=== PATIENT | male | born 1950 | race African-American/Black ===

== ENCOUNTER 2017-05-13 02:03 | Inpatient (IN) | payer MEDICAID, MEDICARE ==
[2017-05-13] VITALS (8 sets, daily range): BP systolic 126–148; BP diastolic 50–82
[~2017-05-13] VITALS: Ht 167.6 cm; Wt 98.4 kg
[~2017-05-13 02:03] MED LIST: ASPIRIN81 MG ORAL; LASIX20 M1 ORAL; NKM; NORCO 5-325 TA1 EACH ORAL; POTASSIUM CHLO10 ME3 ORAL
[2017-05-13] MEDS ORDERED: ASPIRIN EC81 MG ORAL (02:20)
[2017-05-13] MEDS ORDERED: GLYBURIDE5 MG PO (02:20)
[2017-05-13] MEDS ORDERED: METOPROLOL TAR100 MG ORAL (02:20)
[2017-05-13] MEDS ORDERED: BACLOFEN10 MG ORAL (02:20)
[2017-05-13] MEDS ORDERED: SIMVASTATIN20 MG ORAL (02:20)
[2017-05-13] MEDS ORDERED: HYDROCODON-ACE1 EA13 ORAL (02:20)
[2017-05-13] MEDS ORDERED: FENOFIBRATE43 MG ORAL (02:20)
[2017-05-13] MEDS ORDERED: GABAPENTIN400 MG ORAL (02:20)
[2017-05-13] MEDS ORDERED: QVAR7.3 G2 IH (02:20)
[2017-05-13] MEDS ORDERED: ATARAX25 MG ORAL (02:20)
[2017-05-13] MEDS ORDERED: LASIX20 M1 ORAL (02:20)
[2017-05-13] MEDS ORDERED: LOSARTAN POTASS50 MG ORAL (02:20)
[2017-05-13] MEDS ORDERED: Azithromycin 500 MG in NS 275 ML IV ONE (02:30)
[2017-05-13] MEDS ORDERED: Ipratropium 0.02% Inh Soln 2.5ml UD HHN ONE (02:30)
[2017-05-13] MEDS ORDERED: Morphine Sulfate 4mg/ml Inj IVP ONE (02:30)
[2017-05-13] MEDS ORDERED: Solu-MEDROL 125mg Inj IVP ONE (02:30)
[2017-05-13] MEDS: Albuterol ud Inhalation HHN SCH ×3 (02:45→03:06)
[2017-05-13] MEDS ORDERED: Azithromycin 500mg Inj IV ONE (02:52)
--- NOTE | 2017-05-13 02:57 | Emergency Room Report ---
History of Present Illness General Chief Complaint: Upper Respiratory Illness Source: Patient Present Illness [facility] The patient presents to emergency department with dyspnea cough and left ear pain. This program for several days. The worsening. His been using an inhaler at least daily. He is wheezing. The patient has a prior history of congestive heart failure. This is new for him to have a productive cough and as such significant wheezing. The symptoms worse attack. The left taking prednisone in the past. The patient complains about chest pain but only when he is coughing. It's not worsened when he is walking. Denies any calf tenderness although he does have some edema of his lower extremities. Some loose stools. Min nausea. No vomiting. 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 Reviewed Nursing Documentation: PMH: Agreed, PSxH: Agreed Nursing Documentation-PMH Hx Cardiac Problems: Yes - Hx of ME 2 years ago Hx Hypertension: Yes Hx Asthma: Yes Review of Systems All Other Systems: negative except mentioned in HPI Physical Exam Vital Signs Date Time Temp Pulse Resp B/P (MAP) Pulse Ox O2 Delivery O2 Flow Rate FiO2 05/13/17 02:09 100.9 82 22 161/90 94 Room Air 05/13/17 02:40 97 Sp02 EP Interpretation: reviewed, normal General Appearance: well appearing, no apparent distress, GCS 15 Head: normocephalic Eyes: bilateral eye PERRL, bilateral eye Scleral Injection ENT: moist mucus membranes Neck: supple Respiratory: rales, wheezing, expiration - significant Cardiovascular #1: regular rate, rhythm, other - I cannot see JVD, edema - trace bilat Cardiovascular #2: 2+ radial (R) Gastrointestinal: normal inspection, normal bowel sounds, non tender, no mass, non-distended, overweight Musculoskeletal: back normal, gait/station normal, normal range of motion Neurologic: alert, oriented x3, grossly normal Psychiatric: mood/affect normal Skin: normal inspection, warm/dry Medical Decision Making Diagnostic Impression: Primary Impression: COPD exacerbation Additional Impressions: Cocaine abuse Renal insufficiency Elevated CPK ER Course Patient presents with dyspnea cough and ear pain. Differential includes viral syndrome, COPD exacerbation, congestive heart failure, bacterial otitis media and upper respiratory infection, possible pneumonia amongst others. With the chest pain we need to exclude myocardial infarction. Evaluation will be with EKG, chest x-ray and labs. The patient will be treated with breathing treatments, some Medrol, morphine and azithromycin. Labs significant for normal WBC, lytes including troponin. EKG without injury. CXR no infiltrates. Tox + for cocaine and opiates. BNP minimally elevated. Influenza negative. Creat elevated. CK also elevated. Patient improved but still needs observation and treatment. When confronted about the cocaine, he denies (but then state he thinks he figured it out). Patient admitted to Dr. Nguyễn telemetry. Laboratory Tests Test 05/13/17 02:43 05/13/17 02:50 White Blood Count 5.6 K/UL (4.8-10.8) Red Blood Count 5.26 M/UL (4.70-6.10) Hemoglobin 15.1 G/DL (14.2-18.0) Hematocrit 47.1 % (42.0-52.0) Mean Corpuscular Volume 89 FL (80-99) Mean Corpuscular Hemoglobin 28.6 PG (27.0-31.0) Mean Corpuscular Hemoglobin Concent 32.0 G/DL (32.0-36.0) Red Cell Distribution Width 12.8 % (11.6-14.8) Platelet Count 150 K/UL (150-450) Mean Platelet Volume 10.5 FL (6.5-10.1) H Neutrophils (%) (Auto) 77.6 % (45.0-75.0) H Lymphocytes (%) (Auto) 11.9 % (20.0-45.0) L Monocytes (%) (Auto) 7.0 % (1.0-10.0) Eosinophils (%) (Auto) 1.9 % (0.0-3.0) Basophils (%) (Auto) 1.6 % (0.0-2.0) Prothrombin Time 10.7 SEC (9.30-11.50) Prothrombin Time INR 1.0 (0.9-1.1) PTT 34 SEC (23-33) H Sodium Level 139 MMOL/L (136-145) Potassium Level 3.5 MMOL/L (3.5-5.1) Chloride Level 100 MMOL/L (98-107) Carbon Dioxide Level 27 MMOL/L (21-32) Anion Gap 12 mmol/L (5-15) Blood Urea Nitrogen 14 mg/dL (7-18) Creatinine 1.6 MG/DL (0.55-1.30) H Estimate Glomerular Filtration Rate 52.8 mL/min (>60) Glucose Level 83 MG/DL (74-106) Lactic Acid Level 1.80 mmol/L (0.66-2.22) Calcium Level 9.0 MG/DL (8.5-10.1) Total Bilirubin 0.4 MG/DL (0.2-1.0) Aspartate Amino Transferase (AST) 28 U/L (15-37) Alanine Aminotransferase (ALT) 22 U/L (12-78) Alkaline Phosphatase 58 U/L (46-116) Total Creatine Kinase 506 U/L (26-308) H Troponin I 0.007 ng/mL (0.000-0.056) Pro-B-Type Natriuretic Peptide 334 pg/mL (0-125) H Total Protein 8.4 G/DL (6.4-8.2) H Albumin 3.9 G/DL (3.4-5.0) Globulin 4.5 g/dL Albumin/Globulin Ratio 0.9 (1.0-2.7) L Serum Alcohol < 3 mg/dL Urine Color Yellow Urine Appearance Clear Urine pH 6.5 (4.5-8.0) Urine Specific [place] 1.015 (1.005-1.035) Urine Protein 3+ (NEGATIVE) H Urine Glucose (UA) Negative (NEGATIVE) Urine Ketones Negative (NEGATIVE) Urine Occult Blood 2+ (NEGATIVE) H Urine Nitrite Negative (NEGATIVE) Urine Bilirubin Negative (NEGATIVE) Urine Urobilinogen 4 MG/DL (0.0-1.0) H Urine Leukocyte Esterase Negative (NEGATIVE) Urine RBC 2-4 /HPF (0 - 0) H Urine WBC 0 /HPF (0 - 0) Urine Squamous Epithelial Cells None /LPF (NONE/OCC) Urine Bacteria Few /HPF (NONE) Urine Opiates Screen Positive (NEGATIVE) H Urine Barbiturates Screen Negative (NEGATIVE) Phencyclidine (PCP) Screen Negative (NEGATIVE) Urine Amphetamines Screen Negative (NEGATIVE) Urine Benzodiazepines Screen Negative (NEGATIVE) Urine Cocaine Screen Positive (NEGATIVE) H Urine Marijuana (THC) Screen Negative (NEGATIVE) Microbiology Date/Time Source Procedure Growth Status 05/13/17 05:00 Nasal Nares Influenza Types A,B Antigen (JO) - Final Complete EKG Diagnostic Results Rate: normal Rhythm: NSR ST Segments: no acute changes Rhythm Strip Diag. Results EP Interpretation: yes Rhythm: NSR, no PVC's, no ectopy Last Vital Signs Date Time Temp Pulse Resp B/P (MAP) Pulse Ox O2 Delivery O2 Flow Rate FiO2 05/13/17 15:51 97.7 88 18 130/69 97 05/13/17 10:48 Room Air 21 Status: improved Disposition: ADMITTED INPATIENT Condition: Serious Indio Quintero M.D. May 13, 2017 02:57
[2017-05-13 03:13] LABS: APPEARANCE,URINE CLEAR; KETONES,URINE NEGATIVE (NEGATIVE); LEUKOCYTE ESTERASE ,URINE NEGATIVE (NEGATIVE); NITRITE,URINE NEGATIVE (NEGATIVE); PH,URINE 6.5 (4.5-8.0); PROTEIN,URINE 3+ (NEGATIVE); UROBILINOGEN,URINE 4 MG/DL (0.0-1.0)
[2017-05-13 03:15] LABS: BASOPHILS % (AUTO) 1.6 % (0.0-2.0); EOSINOPHILS % (AUTO) 1.9 % (0.0-3.0); LYMPHOCYTES % (AUTO) 11.9 % (20.0-45.0); MEAN CORPUSCULAR HEMOGLOBIN 28.6 PG (27.0-31.0); MEAN CORPUSCULAR VOLUME 89 FL (80-99); MEAN PLATELET VOLUME 10.5 FL (6.5-10.1); NEUTROPHILS % (AUTO) 77.6 % (45.0-75.0); PLATELET COUNT 150 K/UL (150-450); RED BLOOD COUNT 5.26 M/UL (4.70-6.10); RED CELL DISTRIBUTION WIDTH 12.8 % (11.6-14.8); WHITE BLOOD COUNT 5.6 K/UL (4.8-10.8)
[2017-05-13 03:18] LABS: ANION GAP 12 mmol/L (5-15); CARBON DIOXIDE 27 MMOL/L (21-32); CHLORIDE 100 MMOL/L (98-107); CREATININE 1.6 MG/DL (0.55-1.30); GLOMERULAR FILTRATION RATE 52.8 mL/min (>60); POTASSIUM 3.5 MMOL/L (3.5-5.1); SODIUM 139 MMOL/L (136-145)
[2017-05-13 03:26] LABS: WBC,URINE 0 /HPF (0 - 0)
[2017-05-13 03:27] LABS: BACTERIA,URINE FEW /HPF
[2017-05-13 03:29] LABS: ALANINE AMINOTRANSFERASE 22 U/L (12-78); ALBUMIN/GLOBULIN RATIO 0.9 (1.0-2.7); ASPARTATE AMINO TRANSFERASE 28 U/L (15-37); TOTAL PROTEIN 8.4 G/DL (6.4-8.2)
[2017-05-13 03:30] LABS: PROTHROMBIN TIME 10.7 SEC (9.30-11.50)
[2017-05-13] MEDS ORDERED: Promethazine/Codeine 5ml UD ORAL PRN (06:45)
[2017-05-13] MEDS ORDERED: LORazepam Inj 2mg/ml 1ml IV PRN (06:45)
[2017-05-13] MEDS ORDERED: Norco 10mg/325mg tab ORAL PRN (06:45)
[2017-05-13] MEDS ORDERED: Albuterol/Ipratropium 3ml neb HHN PRN (06:45)
[2017-05-13] MEDS ORDERED: Nitroglycerin Subl 0.4mg tab SL PRN (06:45)
[2017-05-13] MEDS ORDERED: Morphine Sulfate 2mg/ml Inj IVP PRN (06:45)
[2017-05-13] MEDS ORDERED: Losartan 50mg tab ORAL SCH (09:00)
[2017-05-13] MEDS: Solu-MEDROL 125mg Inj IV SCH ×3 (09:26→21:54)
[2017-05-13] MEDS: Theophylline ER 100mg ORAL SCH ×2 (09:26→21:54)
[2017-05-13] MEDS: Heparin 5000 units/ml inj SUBQ SCH ×2 (09:30→21:54)
[2017-05-13] MEDS ORDERED: DILTIAZEM HCL30 MG PO (10:41)
[2017-05-13] MEDS ORDERED: LACRI-LUBE1 APPLIC (10:41)
--- NOTE | 2017-05-13 11:06 | Diagnostic Imaging Report ---
Indication: COUGH Technique: One view of the chest Comparison: none Findings: The lungs and pleural spaces are clear. The aorta is calcified. Upper mediastinum is unremarkable. Heart size is upper limits of normal Impression: No acute process This agrees with the preliminary interpretation provided by the emergency room physician
[2017-05-13] MEDS: NovoLOG Insulin Flexpen SUBQ SCH ×3 (11:43→21:53)
[2017-05-13] MEDS: Zoysn 3.37gm in D5W 55ml IVPB SCH ×2 (13:30→21:54)
[2017-05-13] MEDS ORDERED: Piperacillin/Tazobactam 2.25 GM in D5W 55 ML IV SCH (14:00)
--- NOTE | 2017-05-13 14:17 | Cardiology Report ---
APPROVED REPORT EKG Measurement Heart [id number] FL [id number] Normal sinus rhythm Normal ECG
--- NOTE | 2017-05-13 14:34 | History and Physical ---
History of Present Illness General Date patient seen: May 13, 2017 Reason for Hospitalization: Upper Respiratory Illness Present Illness HPI 66 year old male with hx of Asthma, CHF presented to emergency department with dyspnea, productive cough and left ear pain for several days. He had wheezing on presentation. The patient complains about chest pain but only when he is coughing. He was diagnosed to have acute exacerbation of Asthma with purulent bronchitis and admitted for further work up. Allergies: Coded Allergies: IBUPROFEN (Verified Allergy, 12/07/12) Medication History Scheduled Aspirin Ec* (Aspirin Ec*), 81 MG ORAL DAILY, (Reported) Aspirin* (Aspirin*), 81 MG ORAL DAILY, (Reported) Baclofen* (Baclofen*), 10 MG ORAL BID, (Reported) Diltiazem Hcl (Diltiazem Hcl), 30 MG PO BID, (Reported) Fenofibrate,Micronized (Fenofibrate), 54 MG ORAL DAILY, (Reported) Furosemide* (Lasix*), 20 MG ORAL DAILY Furosemide* (Lasix*), 20 MG ORAL DAILY, (Reported) Gabapentin* (Gabapentin*), 400 MG ORAL THREE TIMES A DAY, (Reported) Glyburide (Glyburide), 5 MG PO BID, (Reported) Hydrocodone Bit/Acetaminophen 5-325* ([place] 5-325*), 1 TAB ORAL Q6H Losartan Potassium* (Losartan Potassium*), 100 MG ORAL DAILY, (Reported) Metoprolol Tartrate* (Metoprolol Tartrate*), 100 MG ORAL EVERY 12 HOURS, ( Reported) No Known Medications* (NKM - No Known Medications*), 0 ., (Reported) Potassium Chloride (Potassium Chloride), 10 MEQ ORAL DAILY Simvastatin (Zocor), 20 MG ORAL BEDTIME, (Reported) Scheduled PRN Hydrocodone Bit/Acetaminophen 10-325* (Hydrocodon-Acetaminophn 10-325*), 1 TAB ORAL Q8H PRN for For Pain, (Reported) Hydrocodone Bit/Acetaminophen 5-325* ([place] 5-325*), 1 TAB ORAL Q6H PRN for For Pain Hydroxyzine HCl (Hydroxyzine HCl), 25 MG ORAL DAILY PRN for For Anxiety, ( Reported) Miscellaneous Medications Artificial Tears (Refresh Lacri-Lube Ointment), (Reported) Beclomethasone Dipropionate (Qvar), Unknown Dose IH, (Reported) Patient History Healthcare decision maker Resuscitation status Advanced Directive on File Past Medical/Surgical History Past Medical/Surgical History: (1) History of asthma (2) CHF (congestive heart failure) Review of Systems Constitutional: Reports: weakness Eye: Reports: no symptoms ENT: Reports: no symptoms Respiratory: Reports: shortness of breath, wheezing Physical Exam General Appearance: no apparent distress Lines, tubes and drains: peripheral HEENT: normocephalic, atraumatic Neck: normal alignment, supple Respiratory/Chest: rhonchi - left, rhonchi - right, expiratory wheezing Breasts: no masses Cardiovascular/Chest: normal peripheral pulses, regular rhythm Last 24 Hour Vital Signs Date Time Temp Pulse Resp B/P (MAP) Pulse Ox O2 Delivery O2 Flow Rate FiO2 05/13/17 12:00 88 05/13/17 11:49 98.2 87 18 148/78 95 05/13/17 10:48 89 20 Room Air 21 05/13/17 09:26 135/71 05/13/17 08:35 98.2 88 18 135/71 95 05/13/17 08:00 87 05/13/17 05:49 97.9 86 20 143/82 96 Room Air 21 05/13/17 05:49 86 05/13/17 05:30 99.9 85 20 132/66 95 Room Air 21 05/13/17 05:13 99.9 85 20 132/66 95 Room Air 05/13/17 03:22 100.9 83 24 126/72 96 Room Air 21 05/13/17 03:18 73 24 100 Room Air 21 05/13/17 03:05 80 21 98 Room Air 21 05/13/17 03:05 36 05/13/17 03:05 77 22 100 Room Air 21 05/13/17 02:54 81 18 100 Room Air 21 05/13/17 02:54 36 05/13/17 02:53 79 16 100 Room Air 21 05/13/17 02:40 78 23 98 Room Air 21 05/13/17 02:40 36 05/13/17 02:40 87 18 Room Air 97 05/13/17 02:30 82 22 Room Air 05/13/17 02:09 100.9 82 22 161/90 94 Room Air Intake and Output 05/13/17 05/14/17 19:00 07:00 Intake Total 120 ml Balance 120 ml Intake Oral 120 ml # Voids 1 Laboratory Tests Test 05/13/17 02:43 05/13/17 02:50 White Blood Count 5.6 K/UL (4.8-10.8) Red Blood Count 5.26 M/UL (4.70-6.10) Hemoglobin 15.1 G/DL (14.2-18.0) Hematocrit 47.1 % (42.0-52.0) Mean Corpuscular Volume 89 FL (80-99) Mean Corpuscular Hemoglobin 28.6 PG (27.0-31.0) Mean Corpuscular Hemoglobin Concent 32.0 G/DL (32.0-36.0) Red Cell Distribution Width 12.8 % (11.6-14.8) Platelet Count 150 K/UL (150-450) Mean Platelet Volume 10.5 FL (6.5-10.1) H Neutrophils (%) (Auto) 77.6 % (45.0-75.0) H Lymphocytes (%) (Auto) 11.9 % (20.0-45.0) L Monocytes (%) (Auto) 7.0 % (1.0-10.0) Eosinophils (%) (Auto) 1.9 % (0.0-3.0) Basophils (%) (Auto) 1.6 % (0.0-2.0) Prothrombin Time 10.7 SEC (9.30-11.50) Prothromb Time International Ratio 1.0 (0.9-1.1) Activated Partial Thromboplast Time 34 SEC (23-33) H Sodium Level 139 MMOL/L (136-145) Potassium Level 3.5 MMOL/L (3.5-5.1) Chloride Level 100 MMOL/L (98-107) Carbon Dioxide Level 27 MMOL/L (21-32) Anion Gap 12 mmol/L (5-15) Blood Urea Nitrogen 14 mg/dL (7-18) Creatinine 1.6 MG/DL (0.55-1.30) H Estimat Glomerular Filtration Rate 52.8 mL/min (>60) Glucose Level 83 MG/DL (74-106) Lactic Acid Level 1.80 mmol/L (0.66-2.22) Calcium Level 9.0 MG/DL (8.5-10.1) Total Bilirubin 0.4 MG/DL (0.2-1.0) Aspartate Amino Transf (AST/SGOT) 28 U/L (15-37) Alanine Aminotransferase (ALT/SGPT) 22 U/L (12-78) Alkaline Phosphatase 58 U/L (46-116) Total Creatine Kinase 506 U/L (26-308) H Troponin I 0.007 ng/mL (0.000-0.056) Pro-B-Type Natriuretic Peptide 334 pg/mL (0-125) H Total Protein 8.4 G/DL (6.4-8.2) H Albumin 3.9 G/DL (3.4-5.0) Globulin 4.5 g/dL Albumin/Globulin Ratio 0.9 (1.0-2.7) L Serum Alcohol < 3 mg/dL Urine Color Yellow Urine Appearance Clear Urine pH 6.5 (4.5-8.0) Urine Specific [place] 1.015 (1.005-1.035) Urine Protein 3+ (NEGATIVE) H Urine Glucose (UA) Negative (NEGATIVE) Urine Ketones Negative (NEGATIVE) Urine Occult Blood 2+ (NEGATIVE) H Urine Nitrite Negative (NEGATIVE) Urine Bilirubin Negative (NEGATIVE) Urine Urobilinogen 4 MG/DL (0.0-1.0) H Urine Leukocyte Esterase Negative (NEGATIVE) Urine RBC 2-4 /HPF (0 - 0) H Urine WBC 0 /HPF (0 - 0) Urine Squamous Epithelial Cells None /LPF (NONE/OCC) Urine Bacteria Few /HPF (NONE) Urine Opiates Screen Positive (NEGATIVE) H Urine Barbiturates Screen Negative (NEGATIVE) Phencyclidine (PCP) Screen Negative (NEGATIVE) Urine Amphetamines Screen Negative (NEGATIVE) Urine Benzodiazepines Screen Negative (NEGATIVE) Urine Cocaine Screen Positive (NEGATIVE) H Urine Marijuana (THC) Screen Negative (NEGATIVE) Microbiology Date/Time Source Procedure Growth Status 05/13/17 05:00 Nasal Nares Influenza Types A,B Antigen (JO) - Final Complete Height (Feet): 5 Height (Inches): 6.00 Weight (Pounds): 217 Medications Current Medications Medications (Trade) Dose Ordered Sig/Jinny Route PRN Reason Start Time Stop Time Status Last Admin Dose Admin Acetaminophen/ Hydrocodone Bitart ([place] 10325) 1 ea Q8H PRN ORAL For Pain 05/13/17 06:45 05/20/17 06:44 Albuterol/ Ipratropium (Albuterol/ Ipratropium) 3 ml Q4H PRN HHN dyspnea 05/13/17 06:45 05/18/17 06:44 Baclofen (Lioresal) 10 mg BID ORAL 05/13/17 09:00 06/12/17 08:59 05/13/17 09:26 Dextrose (Dextrose 50%) STAT PRN IV Hypoglycemia 05/13/17 06:45 06/12/17 06:44 Gabapentin (Neurontin) 400 mg THREE TIMES A DAY ORAL 05/13/17 09:00 06/12/17 08:59 05/13/17 13:30 Heparin Sodium (Porcine) (Heparin 5000 units/ml) 5,000 units EVERY 12 HOURS SUBQ 05/13/17 09:00 06/12/17 08:59 05/13/17 09:30 Insulin Aspart (NovoLOG) BEFORE MEALS AND HS SUBQ 05/13/17 11:30 06/12/17 11:29 05/13/17 11:43 Lorazepam (Ativan 2mg/ml 1ml) 0.5 mg Q4H PRN IV For Anxiety 05/13/17 06:45 05/20/17 06:44 Losartan Potassium (Cozaar) 100 mg DAILY ORAL 05/13/17 09:00 06/12/17 08:59 05/13/17 09:26 Methylprednisolone Sodium Succinate (Solu-MEDROL) 60 mg Q6H IV 05/13/17 09:00 06/12/17 08:59 05/13/17 09:26 Morphine Sulfate (Morphine Sulfate) 2 mg Q4H PRN IVP severe pain 7-10 05/13/17 06:45 05/20/17 06:44 Nitroglycerin (Ntg) 0.4 mg Q5M X 3 DOSES PRN SL Prn Chest Pain 05/13/17 06:45 06/12/17 06:44 Ondansetron HCl (Zofran) 4 mg Q6H PRN IVP Nausea & Vomiting 05/13/17 06:45 06/12/17 06:44 Piperacillin Sod/ Tazobactam Sod 3.375 gm/Dextrose 55 ml @ 13.75 mls/ hr EVERY 8 HOURS IVPB 05/13/17 14:00 05/18/17 13:59 05/13/17 13:30 Promethazine HCl/ Codeine (Phenergan with Codeine) 5 ml Q6H PRN ORAL cough 05/13/17 06:45 06/12/17 06:44 Temazepam (Restoril) 15 mg HSPRN PRN ORAL Insomnia 05/13/17 06:45 05/20/17 06:44 Theophylline (Lonnie-Dur) 100 mg EVERY 12 HOURS ORAL 05/13/17 09:00 06/12/17 08:59 05/13/17 09:26 Assessment/Plan Problem List: (1) COPD exacerbation ICD Codes: J44.1 - Chronic obstructive pulmonary disease with (acute) exacerbation SNOMED: 839108921569446 (2) CHF (congestive heart failure) ICD Codes: I50.9 - Heart failure, unspecified SNOMED: 28269537 (3) History of asthma ICD Codes: Z87.09 - Personal history of other diseases of the respiratory system SNOMED: 423822833 Assessment/Plan respiratory treatment IV abx/ steroids check sputum antitussives echo SHADI VILLAGRAN May 13, 2017 14:34
--- NOTE | 2017-05-13 15:21 | Cardiology Progress Note ---
Assessment/Plan Assessment/Plan [id number] Objective Last 24 Hour Vital Signs Date Time Temp Pulse Resp B/P (MAP) Pulse Ox O2 Delivery O2 Flow Rate FiO2 05/13/17 12:00 88 05/13/17 11:49 98.2 87 18 148/78 95 05/13/17 10:48 89 20 Room Air 21 05/13/17 09:26 135/71 05/13/17 08:35 98.2 88 18 135/71 95 05/13/17 08:00 87 05/13/17 05:49 97.9 86 20 143/82 96 Room Air 21 05/13/17 05:49 86 05/13/17 05:30 99.9 85 20 132/66 95 Room Air 21 05/13/17 05:13 99.9 85 20 132/66 95 Room Air 05/13/17 03:22 100.9 83 24 126/72 96 Room Air 21 05/13/17 03:18 73 24 100 Room Air 21 05/13/17 03:05 80 21 98 Room Air 21 05/13/17 03:05 36 05/13/17 03:05 77 22 100 Room Air 21 05/13/17 02:54 81 18 100 Room Air 21 05/13/17 02:54 36 05/13/17 02:53 79 16 100 Room Air 21 05/13/17 02:40 78 23 98 Room Air 21 05/13/17 02:40 36 05/13/17 02:40 87 18 Room Air 97 05/13/17 02:30 82 22 Room Air 05/13/17 02:09 100.9 82 22 161/90 94 Room Air Intake and Output 05/13/17 05/14/17 19:00 07:00 Intake Total 133.75 ml Balance 133.75 ml Intake Oral 120 ml IV Total 13.75 ml # Voids 1 Laboratory Tests Test 05/13/17 02:43 05/13/17 02:50 White Blood Count 5.6 K/UL (4.8-10.8) Red Blood Count 5.26 M/UL (4.70-6.10) Hemoglobin 15.1 G/DL (14.2-18.0) Hematocrit 47.1 % (42.0-52.0) Mean Corpuscular Volume 89 FL (80-99) Mean Corpuscular Hemoglobin 28.6 PG (27.0-31.0) Mean Corpuscular Hemoglobin Concent 32.0 G/DL (32.0-36.0) Red Cell Distribution Width 12.8 % (11.6-14.8) Platelet Count 150 K/UL (150-450) Mean Platelet Volume 10.5 FL (6.5-10.1) H Neutrophils (%) (Auto) 77.6 % (45.0-75.0) H Lymphocytes (%) (Auto) 11.9 % (20.0-45.0) L Monocytes (%) (Auto) 7.0 % (1.0-10.0) Eosinophils (%) (Auto) 1.9 % (0.0-3.0) Basophils (%) (Auto) 1.6 % (0.0-2.0) Prothrombin Time 10.7 SEC (9.30-11.50) Prothromb Time International Ratio 1.0 (0.9-1.1) Activated Partial Thromboplast Time 34 SEC (23-33) H Sodium Level 139 MMOL/L (136-145) Potassium Level 3.5 MMOL/L (3.5-5.1) Chloride Level 100 MMOL/L (98-107) Carbon Dioxide Level 27 MMOL/L (21-32) Anion Gap 12 mmol/L (5-15) Blood Urea Nitrogen 14 mg/dL (7-18) Creatinine 1.6 MG/DL (0.55-1.30) H Estimat Glomerular Filtration Rate 52.8 mL/min (>60) Glucose Level 83 MG/DL (74-106) Lactic Acid Level 1.80 mmol/L (0.66-2.22) Calcium Level 9.0 MG/DL (8.5-10.1) Total Bilirubin 0.4 MG/DL (0.2-1.0) Aspartate Amino Transf (AST/SGOT) 28 U/L (15-37) Alanine Aminotransferase (ALT/SGPT) 22 U/L (12-78) Alkaline Phosphatase 58 U/L (46-116) Total Creatine Kinase 506 U/L (26-308) H Troponin I 0.007 ng/mL (0.000-0.056) Pro-B-Type Natriuretic Peptide 334 pg/mL (0-125) H Total Protein 8.4 G/DL (6.4-8.2) H Albumin 3.9 G/DL (3.4-5.0) Globulin 4.5 g/dL Albumin/Globulin Ratio 0.9 (1.0-2.7) L Serum Alcohol < 3 mg/dL Urine Color Yellow Urine Appearance Clear Urine pH 6.5 (4.5-8.0) Urine Specific [place] 1.015 (1.005-1.035) Urine Protein 3+ (NEGATIVE) H Urine Glucose (UA) Negative (NEGATIVE) Urine Ketones Negative (NEGATIVE) Urine Occult Blood 2+ (NEGATIVE) H Urine Nitrite Negative (NEGATIVE) Urine Bilirubin Negative (NEGATIVE) Urine Urobilinogen 4 MG/DL (0.0-1.0) H Urine Leukocyte Esterase Negative (NEGATIVE) Urine RBC 2-4 /HPF (0 - 0) H Urine WBC 0 /HPF (0 - 0) Urine Squamous Epithelial Cells None /LPF (NONE/OCC) Urine Bacteria Few /HPF (NONE) Urine Opiates Screen Positive (NEGATIVE) H Urine Barbiturates Screen Negative (NEGATIVE) Phencyclidine (PCP) Screen Negative (NEGATIVE) Urine Amphetamines Screen Negative (NEGATIVE) Urine Benzodiazepines Screen Negative (NEGATIVE) Urine Cocaine Screen Positive (NEGATIVE) H Urine Marijuana (THC) Screen Negative (NEGATIVE) Microbiology Date/Time Source Procedure Growth Status 05/13/17 05:00 Nasal Nares Influenza Types A,B Antigen (JO) - Final Complete ALLYSON GHOSH May 13, 2017 15:21
[2017-05-13 16:29] LABS: ABG BASE EXCESS -1.9; ABG PCO2 33.8 mmHg (35.0-45.0)
[2017-05-13 16:30] LABS: ABG ALLEN TEST POSITIVE
--- NOTE | 2017-05-13 18:30 | Consultation ---
DATE OF CONSULTATION: 05/13/2017 CARDIOLOGY CONSULTATION REFERRING PHYSICIAN: Marcella Nguyễn M.D. REASON FOR REFERRAL: Shortness of breath. HISTORY OF PRESENT ILLNESS: This is a 66-year-old gentleman, who has multiple medical problems as delineated below. The patient presented to the hospital and has been admitted early this morning because of shortness of breath. He is very drowsy at the present time. He is really unable to provide any meaningful history. He has had some coughing. Nonetheless he is not able to provide any meaningful history. At the present time, he is somewhat drowsy. Apparently, he presented to the emergency room because of coughing and left ear pain that has been going on for several days and gradually getting worse. He has been using his inhalers on a regular basis, but still wheezing. Apparently, he has a history of prior congestive heart failure, although again that information is obtained from the patient's chart as I am not able to get that information from him. He denies any chest pain. Denies any PND. Denies any orthopnea. Denies any palpitations. Denies any dizziness. On questioning, however, again accuracy of this is completely clear to me. He does indicate he does have dyspnea on exertion. PAST MEDICAL HISTORY: He does have diabetes. He states he has high blood pressure. No history of heart attack. No cancer or stroke. ALLERGIES: He is not allergic to any medications he states, although his chart indicates he is allergic to ibuprofen. SOCIAL HISTORY: Denies any smoking, drinking of alcoholic beverages, and/or drug use. REVIEW OF SYSTEMS: Denies nausea or vomiting. Does have diarrhea and constipation. Denies any burning or blood in the urine. Denies any coughing or wheezing to me. PHYSICAL EXAMINATION: GENERAL: Reveals drowsy elderly gentleman, in no respiratory distress. HEENT: Unremarkable. NECK: Supple. No jugular venous distention. LUNGS: Appear to be clear to auscultation. CARDIAC: Regular rhythm. ABDOMEN: Soft and obese. Positive bowel sounds. EXTREMITIES: There is no clubbing, cyanosis, nor is there any edema. LABORATORY AND DIAGNOSTIC DATA: His white count of 5.6, hemoglobin 15.1, and platelet count of 150. Sodium is 139, potassium 3.5, chloride 100, bicarbonate 27, BUN 14, creatinine 1.6, and glucose of 83. Lactic acid of 1.8. Troponin was 0.02. ProBNP is only 333. CK of 506. Urinalysis is fairly unremarkable. Coags, INR 1.0. PTT of 34. His chest x-ray today showed no acute process. EKG is sinus rhythm, really no significant ST-T wave abnormalities. ASSESSMENT AND PLAN: 1. Dyspnea. 2. Drowsiness. 3. Obesity. 4. Chronic obstructive pulmonary disease. 5. Reported history of congestive heart failure. Dr. Nguyễn, this patient was seen in cardiac consultation. Examination is not suggestive of congestive heart failure. He is quite drowsy having not received any significant medication to make him that way. CO2 narcosis is the concern. I have instructed the nurses to perform a blood gas to evaluate for possibility of CO2 narcosis. Further recommendations depending on that. He will have a set of cardiac enzymes repeated as well as an EKG in the morning as well as an echocardiogram. Augustus Larios M.D. DR: Navid JOB#: [id number] CC:
--- NOTE | 2017-05-13 18:32 | General Progress Note ---
Progress Note Progress Note ENT Initial consult dictated job # [id number] Is pharyngitis not left ear otitis continue present antibiotics which seem to be working per the pt. MARY QUILES May 13, 2017 18:32
--- NOTE | 2017-05-13 20:45 | Consultation ---
DATE OF CONSULTATION: 05/13/2017 HEAD AND NECK SURGERY, ENT CONSULT CONSULTING PHYSICIAN: Octaviano Anton M.D. REFERRING PHYSICIAN: Marcella Nguyễn M.D. INDICATION FOR CONSULTATION: The patient complains of pain in his left ear that is going on for about 2 weeks. He has not treated it with anything. PAST MEDICAL HISTORY: Significant for cocaine abuse, renal insufficiency, elevated CPK, knee sprain, and asthma. MEDICATIONS: Include piperacillin, insulin, Neurontin, Cozaar, Lonnie-Dur, albuterol, lorazepam, morphine, nitroglycerin, Zofran, Restoril, Zithromax, Proventil, Atrovent, and morphine sulfate. ALLERGIC REACTIONS: Ibuprofen. PHYSICAL EXAMINATION: GENERAL: This is a 66-year-old male, who is 167.64 cm, 98.43 kg, and BMI 35.0 kg/m2. The patient is sitting up in bed, conversive. HEENT: Head is normocephalic. Right ear, positive light reflex. Normal canal. Small amount of wax but no significant signs of infection. Neck is tender under the left jaw. When he swallows, it hurts in the mouth. Little red on the left side. Nose, normal mucosa. ASSESSMENT: This appears to be pharyngitis and he seems to be responding to the intravenous antibiotics. He does have a history of cocaine abuse and renal insufficiency. PLAN: Continue the IV antibiotics and this should go away. Please reconsult me for any further questions or concerns. Please note that I will be out of town from the evening of 05/15/2017 through 05/20/2017. Octaviano Anton M.D. DR: FATOU JOB#: [id number] CC:
[2017-05-14] MEDS ORDERED: Nitroglycerin Subl 0.4mg tab SL PRN (00:30)
[2017-05-14] MEDS ORDERED: Promethazine/Codeine 5ml UD ORAL PRN (00:45)
[2017-05-14] MEDS ORDERED: Albuterol/Ipratropium 3ml neb HHN PRN (02:45)
[2017-05-14] MEDS ORDERED: LORazepam Inj 2mg/ml 1ml IV PRN (02:45)
[2017-05-14] MEDS ORDERED: Morphine Sulfate 2mg/ml Inj IVP PRN (02:45)
[2017-05-14 04:00] VITALS: BP 136/94
[2017-05-14] MEDS: Solu-MEDROL 125mg Inj IV SCH ×3 (05:23→15:50)
[2017-05-14] MEDS: Piperacillin/Tazobactam 3.375 GM in D5W 55 ML IVPB SCH ×2 (06:00→14:22)
[2017-05-14] MEDS: NovoLOG Insulin Flexpen SUBQ SCH ×3 (06:30→17:36)
[2017-05-14] MEDS ORDERED: Norco 10mg/325mg tab ORAL PRN (06:45)
[2017-05-14 08:00] VITALS: BP 142/79
[2017-05-14] MEDS ORDERED: Theophylline ER 100mg ORAL SCH (09:00)
[2017-05-14] MEDS ORDERED: Losartan 50mg tab ORAL SCH (09:00)
[2017-05-14] MEDS ORDERED: Heparin 5000 units/ml inj SUBQ SCH (09:00)
--- NOTE | 2017-05-14 09:39 | Consultation ---
History of Present Illness General Date patient seen: May 14, 2017 Time patient seen: 10:30 Chief Complaint: Upper Respiratory Illness Present Illness HPI 66 y/o M with hx of Asthma, CHF, coccaine abuse, hx of ID 2 years ago, HTN, CKD presents to ED on 05/13 progressive SOB and left ear pain, wheezing and productive cough for several days onset, and increased used of rescue inhaler. Chest pain only with coughing. Reported some loose stools, mild nausea but no vomiting. Denied orthopnea, palpitations, f/c. Allergies: Coded Allergies: IBUPROFEN (Verified Allergy, 12/07/12) Medication History Scheduled Aspirin Ec* (Aspirin Ec*), 81 MG ORAL DAILY, (Reported) Aspirin* (Aspirin*), 81 MG ORAL DAILY, (Reported) Baclofen* (Baclofen*), 10 MG ORAL BID, (Reported) Diltiazem Hcl (Diltiazem Hcl), 30 MG PO BID, (Reported) Fenofibrate,Micronized (Fenofibrate), 54 MG ORAL DAILY, (Reported) Furosemide* (Lasix*), 20 MG ORAL DAILY Furosemide* (Lasix*), 20 MG ORAL DAILY, (Reported) Gabapentin* (Gabapentin*), 400 MG ORAL THREE TIMES A DAY, (Reported) Glyburide (Glyburide), 5 MG PO BID, (Reported) Hydrocodone Bit/Acetaminophen 5-325* ([place] 5-325*), 1 TAB ORAL Q6H Losartan Potassium* (Losartan Potassium*), 100 MG ORAL DAILY, (Reported) Metoprolol Tartrate* (Metoprolol Tartrate*), 100 MG ORAL EVERY 12 HOURS, ( Reported) No Known Medications* (NKM - No Known Medications*), 0 ., (Reported) Potassium Chloride (Potassium Chloride), 10 MEQ ORAL DAILY Simvastatin (Zocor), 20 MG ORAL BEDTIME, (Reported) Scheduled PRN Hydrocodone Bit/Acetaminophen 10-325* (Hydrocodon-Acetaminophn 10-325*), 1 TAB ORAL Q8H PRN for For Pain, (Reported) Hydrocodone Bit/Acetaminophen 5-325* ([place] 5-325*), 1 TAB ORAL Q6H PRN for For Pain Hydroxyzine HCl (Hydroxyzine HCl), 25 MG ORAL DAILY PRN for For Anxiety, ( Reported) Miscellaneous Medications Artificial Tears (Refresh Lacri-Lube Ointment), (Reported) Beclomethasone Dipropionate (Qvar), Unknown Dose IH, (Reported) Patient History Healthcare decision maker Resuscitation status Advanced Directive on File Patient History Narrative PMhx: as above Shx:Denies: smoking. 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 Fhx: non contributory Review of Systems All Other Systems: negative except mentioned in HPI Physical Exam Physical Exam Narrative General Appearance: no apparent distress Lines, tubes and drains: peripheral HEENT: normocephalic, atraumatic Neck: normal alignment, supple Respiratory/Chest: CTA x2 Cardiovascular/Chest: normal peripheral pulses, regular rhythm EXT no edema Skin: no rashes Last 24 Hour Vital Signs Date Time Temp Pulse Resp B/P (MAP) Pulse Ox O2 Delivery O2 Flow Rate FiO2 05/14/17 08:39 136/94 05/14/17 08:00 97.7 100 20 142/79 96 Room Air 05/14/17 07:49 82 18 Room Air 21 05/14/17 04:00 98.0 87 20 136/94 97 05/14/17 03:07 86 18 100 Room Air 05/14/17 03:05 21 05/14/17 02:58 84 18 98 Room Air 21 05/13/17 23:55 98.5 72 21 130/50 97 05/13/17 20:00 97.7 89 18 127/76 97 Room Air 21 05/13/17 20:00 88 05/13/17 19:49 90 20 Room Air 21 05/13/17 16:00 88 05/13/17 15:51 97.7 88 18 130/69 97 05/13/17 12:00 88 05/13/17 11:49 98.2 87 18 148/78 95 05/13/17 10:48 89 20 Room Air 21 Laboratory Tests Test 05/13/17 16:20 05/14/17 04:45 Arterial Blood pH 7.420 (7.350-7.450) Arterial Blood Partial Pressure CO2 33.8 mmHg (35.0-45.0) L Arterial Blood Partial Pressure O2 78.8 mmHg (75.0-100.0) Arterial Blood HCO3 21.6 mmol/L (22.0-26.0) L Arterial Blood Oxygen Saturation 95.2 % (92.0-98.0) Arterial Blood Base Excess -1.9 Gordon Test Positive Troponin I 0.006 ng/mL (0.000-0.056) Height (Feet): 5 Height (Inches): 6.00 Weight (Pounds): 217 Medications Current Medications Medications (Trade) Dose Ordered Sig/Jinny Route PRN Reason Start Time Stop Time Status Last Admin Dose Admin Acetaminophen/ Hydrocodone Bitart ([place] 10/325) 1 ea Q8H PRN ORAL For Pain 05/14/17 06:45 05/20/17 06:44 Albuterol/ Ipratropium (Albuterol/ Ipratropium) 3 ml Q4H PRN HHN dyspnea 05/14/17 02:45 05/18/17 06:44 05/14/17 02:54 Baclofen (Lioresal) 10 mg BID ORAL 05/14/17 09:00 06/12/17 08:59 05/14/17 08:37 Dextrose (Dextrose 50%) STAT PRN IV Hypoglycemia 05/14/17 06:45 06/12/17 06:44 Gabapentin (Neurontin) 400 mg THREE TIMES A DAY ORAL 05/14/17 09:00 06/12/17 08:59 05/14/17 08:38 Heparin Sodium (Porcine) (Heparin 5000 units/ml) 5,000 units EVERY 12 HOURS SUBQ 05/14/17 09:00 06/12/17 08:59 05/14/17 08:40 Insulin Aspart (NovoLOG) BEFORE MEALS AND HS SUBQ 05/14/17 06:30 06/12/17 11:29 Lorazepam (Ativan 2mg/ml 1ml) 0.5 mg Q4H PRN IV For Anxiety 05/14/17 02:45 05/20/17 06:44 Losartan Potassium (Cozaar) 100 mg DAILY ORAL 05/14/17 09:00 06/12/17 08:59 05/14/17 08:39 Methylprednisolone Sodium Succinate (Solu-MEDROL) 60 mg Q6H IV 05/14/17 03:00 06/12/17 08:59 05/14/17 08:38 Morphine Sulfate (Morphine Sulfate) 2 mg Q4H PRN IVP severe pain 7-10 05/14/17 02:45 05/20/17 06:44 Nitroglycerin (Ntg) 0.4 mg Q5M X 3 DOSES PRN SL Prn Chest Pain 05/14/17 00:30 06/12/17 06:44 Ondansetron HCl (Zofran) 4 mg Q6H PRN IVP Nausea & Vomiting 05/14/17 00:45 06/12/17 06:44 Piperacillin Sod/ Tazobactam Sod 3.375 gm/Dextrose 55 ml @ 13.75 mls/ hr EVERY 8 HOURS IVPB 05/14/17 06:00 05/18/17 13:59 Promethazine HCl/ Codeine (Phenergan with Codeine) 5 ml Q6H PRN ORAL cough 05/14/17 00:45 06/12/17 06:44 Temazepam (Restoril) 15 mg HSPRN PRN ORAL Insomnia 05/14/17 06:45 05/20/17 06:44 Theophylline (Lonnie-Dur) 100 mg EVERY 12 HOURS ORAL 05/14/17 09:00 06/12/17 08:59 05/14/17 08:37 Assessment/Plan Assessment/Plan Abx: Azithromycin x1 05/13 Zosyn 05/13- Assesment: URI> bronchitis, L acute otitis media- likely viral possibly complicated with bacterial Low grade fever- 2ry to above- improving -CXR no acute process -no leukocytosis -u/a no pyuria Renal insufficiency Drug abuse -UDS + opioids, cocaine Asthma, CHF, coccaine abuse, hx of ID 2 years ago, HTN, CKD Plan: -Switch Zosyn #2 to Azithromycin 250mg PO qd and continue for 4 mores days -ok to discharge on above regimen -f/u final cx -Monitor CBC/BMP, temperatuers THank you for this consultation. Will continue to follow along with you. Discussed with RN and Rebeka Guan M.D. May 14, 2017 09:39
[2017-05-14 12:00] VITALS: BP 147/79
--- NOTE | 2017-05-14 14:45 | Cardiology Report ---
APPROVED REPORT EXAM: Two-dimensional and M-mode echocardiogram with Doppler and color Doppler. INDICATION Left ventricular function M-Mode DIMENSIONS IVSd1.4 (0.7-1.1cm)Left Atrium (MM)3.9 (1.6-4.0cm) LVDd3.8 (3.5-5.6cm)Aortic Root4.0 (2.0-3.7cm) PWd1.0 (0.7-1.1cm)Aortic Cusp Exc.2.1 (1.5-2.0cm) LVDs1.8 (2.5-4.0cm) PWs2.4 cm Normal left ventricular chamber size, hyperdynamic systolic function and wall motion. Left ventricular ejection fraction estimated to be 65%. Mild left ventricular hypertrophy. No evidence of pericardial effusion. Mild left atrial enlargement. Right cardiac chamber sizes are within normal limits. Mild focal aortic valve sclerosis with adequate cusp excursion. Mildly thickened mitral valve leaflets with normal excursion. Mild mitral annulus and aortic root calcification. Pulmonic valve not well visualized. Normal tricuspid valve structure. IVC at normal size with physiologic collapse. A color flow and spectral Doppler study was performed and revealed: Trace aortic regurgitation. Trace to mild mitral regurgitation. Mitral diastolic velocities suggest reduced left ventricular relaxation c/w mild LV diastolic dysfunction (Grade I). Trace to mild tricuspid regurgitation. Tricuspid systolic velocities suggests peak right ventricular systolic pressure of 16 mmHg. No pulmonic regurgitation present.
[2017-05-14 16:00] VITALS: BP 146/90
[2017-05-14] MEDS ORDERED: NS 500ML ONE (16:25)
[2017-05-14] MEDS ORDERED: Tubing IV Secondary IV ONE (16:25)
[2017-05-14] MEDS ORDERED: AZITHROMYC200 MG/5 M ORAL (16:45)
[2017-05-14] MEDS ORDERED: AZITHROMYCIN250 MG ORAL (16:50)
--- NOTE | 2017-05-16 09:42 | Discharge Summary ---
Discharge Summary Hospital Course Date of Admission May 13, 2017 at 03:58 Date of Discharge May 14, 2017 at 19:00 Admitting Diagnosis COPD EXCACERBATION HPI Colten Mooney is a 66 year old male who was admitted on May 13, 2017 at 03:58 for Chronic Obstructive Pulmonary Disease Exacerbation Hospital Course [id number] Discharge Discharge Disposition Patient was discharged to Home (01) Discharge Diagnoses: Yolanda Nunn NP May 16, 2017 09:42
--- NOTE | 2017-05-17 02:30 | Discharge Summary 2 SIG ---
DATE OF ADMISSION: 05/13/2017 DATE OF DISCHARGE: 05/14/2017 CONSULTANTS: 1. Rebeka Grey M.D. 2. Augustus Larios M.D. 3. Octaviano Anton M.D. BRIEF HOSPITAL COURSE: The patient is a 66-year-old male with a history of asthma and congestive heart failure, presented to ED complaining of dyspnea and productive cough with left ear pain for the past several days. He was having chest pain, but only with coughing. On evaluation at ED, the patient was wheezing. Blood work showed normal WBC count. Troponin was negative. Total CK elevated to 506. BNP was 334. Urinalysis was negative. Urine toxicology was positive for opiates and cocaine. Influenza screening was negative for influenza A and B. He was admitted to medical floor for chronic obstructive pulmonary disease exacerbation and congestive heart failure. He was given respiratory treatments and was started on IV antibiotic and IV Solu-Medrol. He had been using inhalers on a regular basis at home, but still continued with shortness of breath and was wheezing. He was given a nebulizer treatment. Cardiac evaluation was done. Examination is not suggestive of congestive heart failure. Cardiac enzymes were monitored and were negative. He was seen by ear, nose, and throat for complaints on his left ear assessed with IV antibiotics. Symptoms should go away. The patient appeared to be with pharyngitis, which is responding to IV antibiotics. He was initially given Zosyn. He remained afebrile with no leukocytosis. Antibiotic was transitioned to p.o. Advised to continue for four more days as outpatient. FINAL DIAGNOSES: 1. Acute-chronic obstructive pulmonary disease exacerbation. 2. Upper respiratory infection, possible acute bronchitis. 3. Left acute otitis media. 4. Renal insufficiency. 5. Drug abuse. 6. Asthma. 7. Obesity. 8. Reported history of congestive heart failure. DISPOSITION: The patient was discharged to home. DISCHARGE MEDICATIONS: Refer to med list. Continue with azithromycin 250 mg daily for four more days. FOLLOWUP: Follow up with PMD in a week. Marcella Nguyễn M.D. I have been assigned to dictate discharge summary on this account and I was not involved in the patient's management. Yolanda Nunn N.P. DR: GUY JOB#: [id number] CC: ANGIE
== END 2017-05-14 19:00 | disposition home or self-care (01) | DRG 140 ==
LOC: EMR 02:33 → 2E 03:58 → EDBEDREQ 04:14 → 3E 23:51
DX: J44.0 Chronic obstructive pulmonary disease with (acute) lower respiratory infection (principal); E11.22 Type 2 diabetes mellitus with diabetic chronic kidney disease; I50.9 Heart failure, unspecified; I13.0 Hypertensive heart and chronic kidney disease with heart failure and stage 1 through stage 4 chronic kidney disease, or unspecified chronic kidney disease; J45.901 Unspecified asthma with (acute) exacerbation; J20.9 Acute bronchitis, unspecified; J44.1 Chronic obstructive pulmonary disease with (acute) exacerbation; H66.92 Otitis media, unspecified, left ear; F14.10 Cocaine abuse, uncomplicated; F11.10 Opioid abuse, uncomplicated; E66.9 Obesity, unspecified; I25.2 Old myocardial infarction; N18.9 Chronic kidney disease, unspecified; N28.9 Disorder of kidney and ureter, unspecified; Z79.82 Long term (current) use of aspirin; Z68.35 Body mass index [BMI] 35.0-35.9, adult; Z79.4 Long term (current) use of insulin
CPT/HCPCS: 36415; 36600; 71010; 80053; 80307; 80329; 81003; 82550; 82803; 82962; 83605; 83880; 84484; 85025; 85610; 85730; 86710; 87040; 87070; 87205; 93005; 93306; 94640; 94664; 99285; J1815; J2405; J7620